=== PATIENT | female | born 1980 | race Caucasian/White ===

== ENCOUNTER → 2020-09-27 15:28 | Outpatient (CLI) | payer OTHER, SELFPAY ==
--- NOTE | ~2020-09-27 | US_ITS ---
EXAMINATION: US venous doppler LE RT DATE: 09/27/2020 15:59 INDICATION: Right lower limb pain, swelling and tightness. TECHNIQUE: Grayscale ultrasound images without and with compression and Doppler ultrasound images of the right lower extremity veins were obtained. COMPARISON: None. FINDINGS: Noncompressible occlusive appearing deep venous thrombosis involving the right popliteal, gastrocnemi us and paired peroneal veins of the right calf. The visualized portions of right common femoral vein, profunda (deep) femoral vein, femoral vein, posterior tibial veins, gastrocnemius vein and greater s aphenous vein outflow are patent. IMPRESSION: 1. Deep venous thrombosis extending from the right popliteal vein into the gastrocnemius and paired peroneal veins of the right calf. Reviewed, dictated and finalized at location A. TING HOUSEKEEPER IMPRESSION: 1. Deep venous thrombosis extending from the right popliteal vein into the gas trocnemius and paired peroneal veins of the right calf.
== END ==
PROVIDERS: PCP Emergency Medicine; Visit Provider Emergency Medicine
DX: M79.661 Pain in right lower leg (principal); I82.401 Acute embolism and thrombosis of unspecified deep veins of right lower extremity
CPT/HCPCS: 93971

== ENCOUNTER 2020-10-12 13:54 | Observation (INO) | payer OTHER, SELFPAY ==
[2020-10-12] VITALS (20 sets, daily range): BP systolic 110–138; BP diastolic 65–90; PULSE 70–100; RESP 14–31; TEMP 36.1–36.8; O2SAT 98–100; BMI 27.7
--- NOTE | ~2020-10-12 | US_ITS ---
EXAMINATION: US venous doppler LE RT DATE: 10/12/2020 15:54 INDICATION: Right lower limb pain. TECHNIQUE: Grayscale ultrasound images without and with compression and Doppler ultrasound images of the right lower extremity veins were obtained. COMPARISON: Ultrasound 09/27/2020 FINDINGS: The visualized portions of right common femoral vein, profunda (deep) femoral vein, femoral vein, per carpenter veins, posterior tibial veins, and greater saphenous vein outflow are patent. There is thrombus in right popliteal, gastrocnemius, and soleus veins. IMPRESSION: 1. Persistent deep vein thrombosis involving the right popliteal, gastrocnemius, and soleus veins. Reviewed, dictated and finalized at location A. MBLY MACHINE OFFBEARER IMPRESSION: 1. Persistent deep vein thrombosis involving the right popliteal, gastrocnemiu s, and soleus veins.
--- NOTE | ~2020-10-12 | CT_ITS ---
EXAMINATION: CTA chest PE protocol DATE: 10/12/2020 16:51 INDICATION: Palpitations. TECHNIQUE: Computed tomography angiography (CTA) of the chest was performed with 100 mL Omnipaque-350 intravenous contrast timed to evaluate the pulmonary arteries. Coronal maximum intensity projection 3D-reconstructions were created by the technologist. Automated exposure control and iterative reconst ruction technique were employed. The dose-length product was 342.11 mGy-cm. COMPARISON: CT abdomen and pelvis 03/19/2019 FINDINGS: The lungs demonstrate mild dependent atelectasis. No pleural effusion. The heart size is no rmal. No pericardial effusion. There are acute pulmonary emboli in the lower lobes. There is mild tho racic spondylosis. IMPRESSION: 1. Acute pulmonary emboli in the lower lobes. Reviewed, dictated and finalized at location A. BORER
--- NOTE | ~2020-10-12 | XR_ITS ---
EXAMINATION: XR chest 2V DATE: 10/12/2020 14:55 INDICATION: Shortness of breath, anterior chest pain and palpitations with racing heart. TECHNIQUE: PA and lateral views of the chest were obtained. COMPARISON: None FINDINGS: Calcified nodules in the left upper lung zone consistent with old granulomatous disease. No other air space opacities, pulmonary edema, pleural effusion or pneumothorax. The cardiomediastinal silhouette is normal. Mild thoracic spondylosis. IMPRESSION: 1. No acute cardiopulmonary disease. Reviewed, dictated and finalized at location B. INE RUG CLEANER
--- NOTE | 2020-10-12 13:57 | ECG_ITS ---
Measurements Intervals [place] Rate: 89 P: 63 TX: 131 QRS: 70 QRSD: 88 T: 46 QT: 343 QTc: 419 Interpretive Statements SINUS RHYTHM BORDERLINE ST ABNORMALITY- INFERIOR LEADS BASELINE WANDER- V4-V6 BORDERLINE ECG Electronically Signed On 10-12-2020 14:25:11 TRAINING AND DEVELOPMENT DIRECTOR by Rachid Ley D.O.
[2020-10-12 14:22] LABS: Basophils Percent Auto 0.7 % (0.2-1.2); Eosinophils Absolute Auto 0.3 K/mm3 (0-0.3); Eosinophils Percent Auto 4.5 % (0-4.4); Hematocrit 39.4 % (37.0-47.0); Hemoglobin 13.5 g/dL (12.0-15.0); Immature Granulocyte Absolute 0.01 K/mm3 (0.00-0.031); Immature Granulocyte Percent A 0.2 % (0-0.5); Lymphocytes Absolute Auto 1.63 K/mm3 (0.9-3.2); Mean Corpuscular HGB Conc 34.3 g/dl (32-36); Mean Corpuscular Hemoglobin 31.8 pg (26-34); Mean Corpuscular Volume 92.7 fl (80-100); Mean Platelet Volume 9.2 fl (7.4-10.4); Monocytes Absolute Auto 0.3 K/mm3 (0.1-0.6); Monocytes Percent Auto 5.5 % (2.6-8.5); Neutrophils Absolute Auto 3.6 K/mm3 (1.3-6.7); Neutrophils Percent Auto 61.1 % (45.5-73.1); Platelet Count Result 272 k/mm3 (150-375); Red Blood Count 4.25 M/mm3 (4.2-5.4); Red Cell Distribution Width 12.5 % (11.5-14.5); White Blood Count 5.8 K/mm3 (4.5-10.0)
[2020-10-12 14:37] LABS: Anion Gap 10 mmol/L (8-16); Blood Urea Nitrogen 10 mg/dL (7-17); Calcium 8.7 mg/dL (8.4-10.2); Carbon Dioxide 24 mmol/L (22-30); Chloride 102 mmol/L (98-107); Estimated CRCL calculation 96 ml/min; Estimated Glomerular Filt Rate > 60; Glucose 135 mg/dL (65-105); Potassium 3.6 mmol/L (3.4-5.0); Sodium 136 mmol/L (137-145)
[2020-10-12 14:38] LABS: INR 1.1; Prothrombin Time 14.9 Seconds (11.1-14.7)
[2020-10-12 14:39] LABS: Partial Thromboplastin Time 29.3 SECONDS (22.3-36.8)
[2020-10-12 14:46] LABS: Troponin I < 0.012 ng/mL (0.000-0.034)
[2020-10-12 15:04] LABS: Magnesium 1.7 mg/dL (1.6-2.3)
--- NOTE | 2020-10-12 15:09 | PC.NURSE ---
received report from Preethi AVALOS. patient here with palpitations. notes reviewed. on satellite project site monitor. no SL inserted yet. waiting for further orders from provider.
--- NOTE | 2020-10-12 16:28 | PC.NURSE ---
CT notified. SL inserted. BS preg pending.
--- NOTE | 2020-10-12 16:40 | PC.NURSE ---
test documented. patient to CT.
--- NOTE | 2020-10-12 16:56 | PC.NURSE ---
patient back from CT.
--- NOTE | 2020-10-12 17:10 | ED.ARRPALP ---
HPI - Arrhythmia/Palpitations General Chief Complaint: Arrhythmia/Palpitations Stated Complaint: INT CP XTD Time Seen by Provider: 10/12/20 14:46 Source: patient Mode of arrival: ambulatory Limitations: no limitations History of Present Illness HPI narrative: 40-year-old female She was diagnosed with a right-sided popliteal DVT about a week ago and is taking Eliquis and just recently tapered her dose down She reported having blood tests done to screen for hypercoagulability as an outpatient and that as far as she knows they were unremarkable She was doing computer work at home today and had a number of unusual symptoms and contacted her physician who wanted her to be checked in the ER Her renal concern was that she is experiencing more pain and a sensation like the clot might be moving up in her right thigh towards her groin, however she notes that overall her leg is feeling much better and that it was so sore initially that she can hardly walk and that is much improved Additionally she had several instances where she felt like her heart was racing and her Apple Watch documented rates of 115-120 And she had a couple of instances of fleeting upper chest pain which seem to be worse after she ate lunch MD complaint: palpitations Related Data Allergies Allergy/AdvReac Type Severity Reaction Status Date / Time No Known Allergies Allergy Verified 03/19/19 09:52 Review of Systems Review of Systems: All systems reviewed & are unremarkable except as noted in HPI and below Constitutional: Constitutional: Denies chills, Denies fatigue, Denies fever(s), Denies headache(s) and Denies weakness Eyes: Eyes: Reports no additional eye complaints and Denies change in vision ENT: Denies headache(s), Denies epistaxis, Denies nasal congestion and Denies sore throat Cardiovascular: Cardiovascular: Reports chest pain, Reports rapid heart rate, Denies leg edema, Denies palpitations and Denies dyspnea Respiratory: Respiratory: Denies cough, Denies dyspnea and Denies wheezing Gastrointestinal: Gastrointestinal: Denies abdominal pain, Denies diarrhea, Denies nausea and Denies vomiting Genitourinary: Genitourinary: Denies hematuria, Denies urinary frequency and Denies dysuria Musculoskeletal: Musculoskeletal: Reports myalgias, Denies deformity, Denies arthralgias, Denies joint swelling, Denies muscle weakness and Denies numbness Integumentary/Breasts: Skin/Breast: Denies rash and Denies wounds Neurologic: Denies headache(s), Denies focal weakness, Denies numbness and Denies weakness Psychiatric: Psychiatric: Reports no additional psychiatric complaints Endocrine: Endocrine: Denies fatigue and Denies palpitations Hematologic/Lymphatic: Hematologic/Lymphatic: Denies easy bleeding and Denies easy bruising Allergic/Immunologic: Allergic/Immunologic: Denies wheezing PMFSH Past Medical History Medical History (Updated 10/12/20 @ 17:19 by Amari Haley MD) Miscarriage (~2007) Pneumonia (~1987) Surgical History Surgical History H/O lateral meniscus repair of left knee (~2003) H/O medial meniscus repair of left knee (~2003) S/P ACL surgery (~1996) Family History Family History Father Hypertension Family history of arthritis Sibling Patient's brother is in good health Mother Family history of pancreatic disease Social History Social History Smoking status: Never smoker Second hand tobacco smoke exposure: Yes Alcohol intake: current Substance use: never Exam Const: General: no acute distress, well developed, alert and awake Nutritional Appearance: well nourished Orientation/consciousness: patient oriented x3 (alert) Limitations: no limitations HENMT: Head: normocephalic and atraumatic Ears: external ears normal General nose exam: No nasa
--- NOTE | 2020-10-12 17:13 | PC.NURSE ---
resting on stretcher. back on laboratory monitor. waiting for MD to review with patient. waiting for further orders vs dispositionn.
[2020-10-12 17:59] LABS: NT Pro B Type Natriuretic Pept 94 PG/ML (5-100)
[2020-10-12] MEDS: ENOXAPARIN 80 MG/0.8 ML SYRINGE SUB-Q (18:12)
--- NOTE | 2020-10-12 18:20 | PC.NURSE ---
patient and aware of treatment plan. waiting for bed assignment upstairs. food tray ordered. on youth nutritional monitor. denies needs.
--- NOTE | 2020-10-12 19:02 | PC.NURSE ---
SBAR completed and sent to [facility].
--- NOTE | 2020-10-12 20:00 | PM.IMHP ---
H&P: HPI History of Present Illness Date/Time: 10/12/20 20:00 Chief Complaint: Palpitations. Narrative: This is a very pleasant 40-year-old female recently diagnosed with right leg DVT on Eliquis who presented to the emergency department earlier today via private vehicle from home for evaluation of palpitations. Sometime around [place] she began experiencing discomfort in her right calf and she was found to have a DVT extending from the right popliteal vein into the gastrocnemius and paired peroneal veins of the right calf on 09/27/2020. 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 She was started on Eliquis that same day, taking 10 mg twice daily for 7 days, and she is now on 5 mg twice a day of which she states 100% compliance. Earlier this morning while sitting at her computer she suddenly began experiencing feelings of racing heart and palpitations, and noticed that her pulse was between 115 and 120 on her Fitbit watch (very unusual for her). The palpitations and racing heart were intermittent through the rest of the morning, and when she got up around lunchtime she felt short of breath and felt it would be best to come in for evaluation. Bilateral pulmonary emboli were noted on chest CTA and she is being admitted in this setting. At the time my evaluation she feels better and has no specific complaints at this time. She specifically denies lightheadedness, dizziness, chest pain, pleuritic pain, and current shortness of breath. She has no prior history of DVT but her dad has had recurrent DVTs as well as her uncle. No known history of malignancy. Weight has remained stable. She has never had a mammogram but does self exams and she has not noticed any lumps or bumps. She was on progesterone only in the summer of 2019 but has not been on hormone since that time. Review of Systems Review of Systems: Narrative: Twelve systems were reviewed with pertinent positives and negatives as per HPI. No fever, chills, or sweats. She has not been exposed to COVID or had COVID. As documented, all other systems were reviewed and are negative. [facility], [facility] Past Medical History Medical History (Updated 10/12/20 @ 23:09 by Yessenia Nagel PA-C) Miscarriage (~2007) Pneumonia (~1987) Right leg DVT (~09/2020) Right lower extremity DVT is extending from the popliteal to the gastrocnemius and bilateral peroneal veins. Surgical History Surgical History (Updated 10/12/20 @ 23:07 by Yessenia Nagel PA-C) History of lateral meniscus repair of left knee (~2003) History of medial meniscus repair of left knee (~2003) History of repair of anterior cruciate ligament of left knee (~1996) Family History Family History Father Family history of arthritis Hypertension Pulmonary embolism Sibling Patient's brother is in good health Mother Family history of pancreatic disease Other Thrombosis Social History Social History (Updated 10/12/20 @ 23:08 by Yessenia Nagel PA-C) Social History: The patient lives with her and their 2 sons, aged 8 in 10, in [place]. 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 She smoked for short period of time and collagen quit in 2000. She drinks perhaps 1 alcoholic beverage a night. No illicit substance use. Her Sonido is her surrogate decision maker and she wishes to be a full code. Spiritual care concerns: No Meds Home Medications and Allergies Home Medications Medication Instructions Recorded Confirmed Type apixaban [Eliquis] 5 mg PO Q12H 10/12/20 10/12/20 History Allergies Allergy/AdvReac Type Severity Reaction Status Date / Time No Known Allergies Allergy Verified 10/12/20 18:22 Vital Signs Vital Signs - 24 hr 10/12/20 13:56 10/12/20 14:43 10/12/20 14:44 Temper
--- NOTE | 2020-10-12 20:01 | ADMGEN ---
This patient, Bjorn Ramey, was admitted to [facility]. Patient/family oriented to hospital policies and general routines including ID bracelet, bed and alarms, visiting hours, pain management, procedures, bathroom and other care routines, personal items, smoking policy, room service/diet, and visiting hours. Information on how to activate the Rapid Response Team has been discussed. Patient/Family are encouraged to report perceived risks to care and to ask questions if they do not understand what they are told or what they should do.
[2020-10-13] VITALS: PULSE 69
--- NOTE | 2020-10-13 | ECHO_ITS ---
Patient Info Name: Bjorn Ramey Age: 40 years : 1980 Gender: Female Ht: 69 in Wt: 187 lbs BSA: 2.05 m2 HR: 70 bpm BP: 142 / 69 mmHg Heart Rhythm: Sinus Rhythm Technical Quality: Good Exam Date: 10/13/2020 1:55 PM Exam Location: [facility] Patient Status: Inpatient Admit Date: 10/12/2020 Staff Ordering Physician: Kirill Clark MD Scrap Drop Crane Operator: Everett Jesus RDCS Attending Provider: Kirill Clark MD Referring Physician: Amber LYNN; Exam Type: CA echo doppler color flow Study Info Indications I26.99 - Other pulmonary embolism without acute cor pulmonale Complete two-dimensional, color flow and Doppler transthoracic echocardiogram is performed. History/Risk Factors Pulmonary embolism; palpitations, tachycardia. Summary 1. Complete two-dimensional, color flow and Doppler transthoracic echocardiogram is performed. 2. Left ventricular chamber dimension is normal. 3. Left ventricular systolic function is normal, estimated at 60-65%. 4. The left ventricular diastolic function is grade I diastolic dysfunction. 5. E/e' 4 is not elevated. 6. No pulmonary hypertension, estimated pulmonary arterial systolic pressure is 23 mmHg. Left Ventricle E/e' 4 is not elevated. Left ventricular chamber dimension is normal. Left ventricular systolic function is normal, estimated at 60-65%. The left ventricular diastolic function is grade I diastolic dysfunction. Right Ventricle Right ventricular systolic function is normal and with normal TAPSE 2.3 cm. Right ventricular chamber dimension is normal. Left Atria Left atrial chamber dimension is normal. Right Atria Right atrial chamber dimension is normal. Aortic Valve The aortic valve is trileaflet. There is no aortic valve stenosis. There is no aortic valve regurgitation. Pulmonic Valve There is no pulmonic regurgitation. Mitral Valve There is no mitral valve stenosis. There is no mitral valve regurgitation. Tricuspid Valve There is no tricuspid valve regurgitation. No pulmonary hypertension, estimated pulmonary arterial systolic pressure is 23 mmHg. Pericardium/Pleural There is no pericardial effusion. Inferior Vena Cava Normal inferior vena cava with >50% collapse upon inspiration consistent with normal right atrial pressure, 5 mmHg. Aorta The aortic root size at the sinus of Valsalva is normal. Left Ventricular Outflow Tract Name Value Normal LVOT 2D LVOT Diameter 2.1 cm LVOT Doppler LVOT Peak Gradient 3 mmHg LVOT Mean Gradient 2 mmHg LVOT VTI 18 cm LVOT VTI/AV VTI Ratio 0.7 LVOT Stroke Volume 62 ml LVOT CO 4.7 l/min LVOT CI 2.3 l/min/m2 Mitral Valve Name Value Normal MV Doppler
[2020-10-13 00:26] LABS: Troponin I < 0.012 ng/mL (0.000-0.034)
[2020-10-13 04:00] VITALS: BP 114/82; PULSE 62; PULSE 66; RESP 16; TEMP 36.3; O2SAT 100
[2020-10-13] MEDS: ENOXAPARIN 100 MG/ML SYRINGE 85 MG SUB-Q ×2 (05:24→18:08)
[2020-10-13 06:15] LABS: Hematocrit 39.7 % (37.0-47.0); Hemoglobin 12.9 g/dL (12.0-15.0); Mean Corpuscular HGB Conc 32.5 g/dl (32-36); Mean Corpuscular Hemoglobin 31.3 pg (26-34); Mean Corpuscular Volume 96.4 fl (80-100); Mean Platelet Volume 9.4 fl (7.4-10.4); Platelet Count Result 234 k/mm3 (150-375); Red Blood Count 4.12 M/mm3 (4.2-5.4); Red Cell Distribution Width 12.6 % (11.5-14.5); White Blood Count 4.6 K/mm3 (4.5-10.0)
[2020-10-13 06:24] LABS: Partial Thromboplastin Time 30.1 SECONDS (22.3-36.8); Prothrombin Time 13.8 Seconds (11.1-14.7)
[2020-10-13 08:00] VITALS: BP 132/85; PULSE 85; PULSE 99; RESP 14; TEMP 36.3; O2SAT 100
[2020-10-13 12:00] VITALS: BP 142/89; PULSE 94; PULSE 96; RESP 14; O2SAT 100
[2020-10-13 16:00] VITALS: BP 127/78; PULSE 71; PULSE 83; RESP 15; O2SAT 16
--- NOTE | 2020-10-13 16:38 | PDONCCN ---
HPI - Date of Consult Date/Time: 10/13/20 16:38 Requesting Physician: Kirill Clark MD Primary Care Provider: Magdi Foss MD - Consult Narrative Reason for consult: Hypercoagulable state with new onset pulmonary embolism Narrative: Bjorn Ramey is a 40 year old female who has been in good health was diagnosed with right lower extremity DVT on September 27 when she developed unprovoked tightness and pain in the right calf. She was started treatment with Eliquis which she continues to take. She denies any provoking factor prior to that. She was on progesterone therapy for mass Des cessation that she completed 6 months prior to development of blood clot. There is a family history of blood clot in the father and uncle. Patient this time came back into the hospital with onset of palpitation and shortness of breath. Bilateral pulmonary embolism in the lower lobes were noted on the CTA chest. Doppler study showed persistent right lower extremity DVT involving popliteal, gastrocnemius and soleus vein. He is already feeling better after receiving Lovenox injection. She denies any provoking factor for blood clot this time as well other than not being very active as school are online. 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 Review of Systems - Review of Systems All systems reviewed & are unremarkable except as noted in HPI and bel - Neurologic Denies headache(s), Denies focal weakness, Denies numbness, Denies weakness PMFSH Medical History: Medical History (Last Updated 10/12/20 @ 23:09 by Yessenia Nagel PA-C) Miscarriage Onset Date: ~2007 Pneumonia Onset Date: ~1987 Right leg DVT Onset Date: ~09/2020 Right lower extremity DVT is extending from the popliteal to the gastrocnemius and bilateral peroneal veins. Surgical History: Surgical History (Last Updated 10/12/20 @ 23:07 by Yessenia Nagel PA-C) History of lateral meniscus repair of left knee Onset Date: ~2003 History of medial meniscus repair of left knee Onset Date: ~2003 History of repair of anterior cruciate ligament of left knee Onset Date: ~1996 Family History: Family History (Last Reviewed 10/12/20 @ 23:07 by Yessenia Nagel PA-C) Father Family history of arthritis Hypertension Pulmonary embolism Sibling Patient's brother is in good health Mother Family history of pancreatic disease Other Thrombosis - Social History Social History: Social History (Last Updated 10/12/20 @ 23:08 by Yessenia Nagel PA-C) Others: Spiritual care concerns: No Meds Home Medications Medication Instructions Recorded Confirmed Type apixaban [Eliquis] 5 mg PO Q12H 10/12/20 10/12/20 History Allergies Allergy/AdvReac Type Severity Reaction Status Date / Time No Known Allergies Allergy Verified 10/12/20 18:22 Results - Labs CBC & Chem 7: 10/13/20 05:21 10/12/20 14:12 Labs: Short CBC 10/13/20 Range/Units 05:21 WBC 4.6 (4.5-10.0) K/mm3 Hgb 12.9 (12.0-15.0) g/dL Hct 39.7 (37.0-47.0) % Plt Count 234 (150-375) k/mm3 Cardiac Enzymes 10/12/20 10/12/20 Range/Units 17:18 23:49 Troponin I Cancelled < 0.012 Assessment and Plan - Additional Plan Hypercoagulable state. Patient was initially diagnosed with right lower extremity DVT unprovoked when she came to the ER on September 27, 2020 with sudden onset of right lower extremity tightness and pain. Pain was bad enough that she was using crutches. She has no prior history of thromboembolic events. There is a family history of blood clot in the father and uncle. Prior to development of this blood clot she was on progesterone for mass show cessation that she completed 6 months prior to that. Patient was started on Eliquis with improvement in right lower extremity swelling and pain. Patient now came into the hospital with onset of shortness of breath and palpitation. CT chest showed bilateral lower lobe pulm
--- NOTE | 2020-10-13 16:40 | PM.IMPN ---
Progress Note: A&P Assessment and Plan (1) Pulmonary embolism: Code(s): I26.99 - Other pulmonary embolism without acute cor pulmonale Status: Acute Assessment and Plan: Bothersome since patient was already anticoagulated. Has been placed on Lovenox 1 milligram/kilogram Q 12 and will have to decide which anticoagulant use going forward. Echocardiogram revealed no pulmonary hypertension with normal ejection fraction Family history of DVT/PE and she will need thromboembolic evaluation further in the future. She does relate that she has had 1 miscarriage. Factor 5 Leiden was checked after her diagnosis of DVT and was negative (2) Right leg DVT: Onset Date: ~09/2020 Code(s): I82.401 - Acute embolism and thrombosis of unspecified deep veins of right lower extremity Status: Inactive Assessment and Plan: Lovenox b.i.d.. Subjective Date/time seen: 10/13/20 16:40 Interval history: Date of visit 10/13 40-year-old healthy white female with family history of thrombo embolic disease was diagnosed recently with DVT correct and yesterday evening became short of breath with palpitations. She presented to the emergency room and CTA revealed bilateral lower able emboli. As she had been taking her apixaban anticoagulant faithfully. Presently she is comfortable sitting in bed but a little short of breath with exertion. Exam Narrative: Exam Narrative: Blood pressure 140/86 pulse is 76 respirations 14 per minute saturating 100% on room air General: Well-developed female sitting up in bed in no distress. . HEENT: PERRL, Sclerae anicteric. Neck: Supple. Respiratory: Lungs are clear to auscultation bilaterally. Cardiovascular: Regular rate and rhythm with S1-S2 no murmurs. Gastrointestinal: Abdomen is soft, nontender, positive bowel sounds. Skin: Warm and dry. No rash or lesions on limited exam. Extremities: No clubbing, or edema. Radial and pedal pulses intact. Neurological: Alert. Cranial nerves 2-12 are grossly intact. No gross focal deficits to casual conversation. Psychiatric: Pleasant and cooperative with normal mood and affect. Judgment and insight intact. Objective Data Vital Signs Vital Signs: Vital Signs - 24 hr 10/12/20 17:54 10/12/20 18:00 10/12/20 18:55 Temperature Pulse Rate 92 96 97 Respiratory Rate 17 21 H 21 H Blood Pressure Pulse Oximetry 100 100 100 10/12/20 19:00 10/12/20 19:28 10/12/20 19:41 Temperature Pulse Rate 95 85 Respiratory Rate 14 Blood Pressure 135/78 Pulse Oximetry 98 10/12/20 20:00 10/12/20 23:38 10/13/20 00:00 Temperature 36.2 C L 36.6 C Pulse Rate 87 70 69 Respiratory Rate 18 14 Blood Pressure 133/79 113/69 Pulse Oximetry 99 99 10/13/20 04:00 10/13/20 08:00 10/13/20 12:00 Temperature 36.3 C L 36.3 C L Pulse Rate 62 99 96 Respiratory Rate 16 14 14 Blood Pressure 114/82 132/85 142/89 H Pulse Oximetry 100 100 100 10/13/20 16:00 Temperature Pulse Rate 71 Respiratory Rate Blood Pressure Pulse Oximetry Intake/Output Intake/Output: Intake & Output 10/10/20 10/11/20 10/12/20 10/13/20 23:59 23:59 23:59 23:59 Intake Total 800 Balance 800 Meds/Results Medications: Active Medications Generic Name Dose Route Start Last Admin Trade Name Freq PRN Reason Stop Dose Admin Acetaminophen 650 mg 10/12/20 18:05 Acetaminophen 325 Mg Tablet PO Q4H PRN Mild Pain (1-3) or Fever Enoxaparin Sodium 85 mg 10/13/20 06:00 10/13/20 05:24 Enoxaparin 100 Mg/Ml Syringe SUB-Q 85 mg Q12H DEIDRA Administration Ondansetron HCl 4 mg 10/12/20 18:05 Ondansetron Inj 4 Mg/2 Ml Vial IV PUSH Q4H PRN Nausea Radiology Results: ITS Impressions Chest X-Ray 10/12/20 14:58 IMPRESSION: 1. No acute cardiopulmonary disease. Venous Doppler Study 10/12/20 16:06 IMPRESSION: 1. Persistent deep vein thrombosis involving the right popliteal, gastrocnemius, and soleus vei
[2020-10-13 20:00] VITALS: BP 123/78; PULSE 86; PULSE 88; RESP 16; TEMP 36.2; O2SAT 99
[2020-10-14] VITALS: PULSE 63
[2020-10-14 00:50] VITALS: BP 99/71; PULSE 65; RESP 14; TEMP 36.5; O2SAT 100
[2020-10-14 04:00] VITALS: BP 107/56; PULSE 76; PULSE 80; RESP 16; TEMP 36.9; O2SAT 98
[2020-10-14] MEDS: ENOXAPARIN 100 MG/ML SYRINGE 85 MG SUB-Q (05:40)
[2020-10-14 08:00] VITALS: BP 122/84; PULSE 93; PULSE 94; RESP 18; TEMP 36.5; O2SAT 98
--- NOTE | 2020-10-14 09:15 | PC.NURSE ---
DISCUSSED W/ PT. SELF INJECTION OF LOVENOX. REVIEWED LOVENOX WEBSITE W/ PT. ON SELF ADMINISTRATION AND VIDEO WATCHED. EXPLAINED INJECTION INTO SUB Q TISSUE, WATCH FOR BRUISING OR BLEEDING. CARE NOTE FOR LOVENOX GIVEN. WILL CONTINUE TO MONITOR.
--- NOTE | 2020-10-14 11:20 | PC.NURSE ---
DR. STOREY HERE. DISCHARGE PLANNING IN PROGRESS. CARE COORDINATION WORKING W/ PT. TO CHECK AVAILABILITY AND COST OF LOVENOX INJECTIONS FOR HOME.
[2020-10-14 12:00] VITALS: BP 117/86; PULSE 87; PULSE 96; RESP 20; TEMP 36.8; O2SAT 100
--- NOTE | 2020-10-14 14:04 | PC.NURSE ---
REVIEWED DISCHARGE INSTRUCTIONS AND FOLLOW UP CARE W/ PT. REVIEWED SELF ADMINISTRATION OF LOVENOX INJECTIONS AT HOME EVERY 12 HOURS. QUESTIONS ANSWERED. VOICED UNDERSTANDING. COPIES OF PAPERWORK GIVEN.
--- NOTE | 2020-10-14 14:10 | PC.NURSE ---
DISCHARGED HOME, OUT VIA AMBULATION W/ ALL PERSONAL BELONGINGS AND DISCHARGE INSTRUCTIONS TO HUSBANDS WAITING CAR. VOICES NO C/O. NO DISTRESS NOTED. DENIES CP OR SOB. STEADY GAIT.
--- NOTE | 2020-10-14 18:21 | PM.DS ---
DS: Admitting Diagnosis Admitting Diagnosis Admitting Diagnosis: Pulmonary emboli DS: Discharge Diagnosis Discharge Diagnosis (1) Pulmonary embolism: Code(s): I26.99 - Other pulmonary embolism without acute cor pulmonale Status: Acute Assessment and Plan: placed on Lovenox 1 milligram/kilogram Q 12 . Echocardiogram revealed no pulmonary hypertension with normal ejection fraction Family history of DVT/PE and she will need thromboembolic evaluation further in the future. She does relate that she has had 1 miscarriage. Factor 5 Leiden was checked after her diagnosis of DVT and was negative Seen by Hematology and they recommended to continue outpatient Lovenox injections 1 milligram/kilogram q.12 hours for minimum of 2 weeks and transition back to Eliquis. It was felt that the progesterone she had been on in the fall and her recent more sedentary work had contributed primarily to the DVT and PE. As above she will still need further hyper coagulable workup in the future. (2) Right leg DVT: Onset Date: ~09/2020 Code(s): I82.401 - Acute embolism and thrombosis of unspecified deep veins of right lower extremity Status: Inactive Assessment and Plan: Repeat Doppler unchanged. She will continue on the Lovenox as stated above. DS: Summary Hospital Course Hospital Course: 40-year-old healthy female diagnosis with right DVT 09/27/2020 who had been faithfully taking her Eliquis medication. Evening of admission she had palpitations with shortness of breath and was found to have bilateral lower lobe emboli on CTA of the chest. Echocardiogram revealed no pulmonary hypertension or right heart strain. She is placed on Lovenox subcu Q 12 in within 24-36 hours symptoms had totally subsided. She was seen in consultation by Hematology who recommended continuation of 1 milligram/kilogram Lovenox q.12 hours as an outpatient for a minimum of 2 weeks to be reassessed at that time. She will eventually transition back to p.o. Eliquis. She will need hypercoagulable workup in the future also with her family history. She was feeling fine and may return to work 10/18/2020. Follow-up with Dr. Foss as previously scheduled Time Spent with Patient Time attestation: Total time spent providing and/or coordinating discharge services: 35 minutes Exam Narrative: Exam Narrative: Condition on discharge Blood pressure 118/84 pulse is 94 saturating 100% on room air afebrile Lungs clear CV regular rate rhythm Extremities without edema good distal pulses Neuro alert pleasant cooperative no focal deficits She was discharged home in stable condition and will return to work 10/18/2020 Discharge Plan Discharge Attending physician on discharge: Kirill Clrak Consulting providers: Samm Page Discharging Clinician: Kirill Clark Patient Disposition: Home, Self-Care Activity: as tolerated Diet: regular Discharge Instructions: Per Care Coordination Patient will need to apple picker Lovenox prescription at [facility] in [place] ([phone]) Patient aware of her cost and aware of picking up at [facility]. Patient Instructions: Antibiotic Form, Enoxaparin (By injection), Apixaban (By mouth), Pulmonary Embolism (DC), Deep Vein Thrombosis (DC) Stand Alone Forms: General Discharge Information, Work/School Release IP Follow-up/Referrals: Samm Page MD [Physician] - 2 Weeks Magdi Foss MD [Primary Care Provider] - Keep Reg. Scheduled Appt. Discharge Medications: New enoxaparin [Lovenox] 100 mg/mL Syringe 85 mg subcut Q12H Qty: 28 RF: 0 Discontinued Eliquis 5 mg tablet 5 mg PO Q12H RF: 0 Date of admission: 10/12/20 18:21 Primary Care Provider: Magdi Foss Admitting Provider: Kirill Clark Attending physician on admission: Kirill Clark Condition: Stable
== END 2020-10-14 14:10 | disposition home or self-care (01) ==
LOC: ANHED 17:53 → ANHCPC 18:58
PROVIDERS: Emergency Medicine; Physician Assistant; Admitting Provider Internal Medicine; Emergency Provider Emergency Medicine; PCP Emergency Medicine; Visit Provider Internal Medicine
DX: I26.99 Other pulmonary embolism without acute cor pulmonale (principal); I82.431 Acute embolism and thrombosis of right popliteal vein; R00.2 Palpitations; Z87.891 Personal history of nicotine dependence; R06.02 Shortness of breath
CPT/HCPCS: 36415; 71046; 71275; 80048; 81025; 83735; 83880; 84484; 85025; 85027; 85610; 85730; 93005; 93306; 93971; 96372; 99285; G0378; J1650; Q9967

== ENCOUNTER 2020-11-25 07:48 | Outpatient (CLI) | payer OTHER, SELFPAY ==
--- NOTE | ~2020-11-25 | CT_ITS ---
EXAMINATION: CTA chest PE protocol DATE: 11/25/2020 08:34 INDICATION: Shortness of breath and chest pain, history of pulmonary embolism TECHNIQUE: Computed tomography angiography (CTA) of the chest was performed with 100 mL Omnipaque-350 intravenous contrast timed to evaluate the pulmonary arteries. Coronal maximum intensity projection 3D-reconstructions were created by the technologist. The dose-length product (DLP) was 332.46 mGy-cm. Automated exposure control and iterative reconstruction technique were employed. COMPARISON: 10/12/2020 FINDINGS: The pulmonary arteries are well-opacified. There is a persistent embolus in the right lower lobe which is decreased in size since the comparison examination. The previously described left lowe r lobe pulmonary embolus is no longer identified. No new pulmonary emboli are seen. There is mild dep endent atelectasis. The lungs are free of focal airspace opacities. There is no pleural effusion or p neumothorax. No pathologically enlarged thoracic lymph nodes are identified. The heart size is normal . There is mild thoracic spondylosis. IMPRESSION: 1. Persistent but decreased emboli in the right lower lobe. Resolved left lower lobe pulmonary embolu s. Reviewed, dictated and finalized at location A. O TIME BUYER IMPRESSION: 1. Persistent but decreased emboli in the right lower lobe. Resolved left lower lobe pulmonary embolus.
== END 2020-11-25 07:49 | disposition home or self-care (01) ==
PROVIDERS: PCP Emergency Medicine; Visit Provider Internal Medicine Hematology & Oncology
DX: I26.99 Other pulmonary embolism without acute cor pulmonale (principal)
CPT/HCPCS: 71275; Q9967

== ENCOUNTER 2020-11-29 11:02 | Outpatient (CLI) | payer OTHER, SELFPAY ==
--- NOTE | ~2020-11-29 | US_ITS ---
EXAMINATION: US venous doppler LE RT DATE: 11/29/2020 11:30 INDICATION: Right calf pain. TECHNIQUE: Grayscale ultrasound images without and with compression and Doppler ultrasound images of the right lower extremity veins were obtained. COMPARISON: Ultrasound 10/12/2020 FINDINGS: The visualized portions of right common femoral vein, profunda (deep) femoral vein, femoral vein, per carpenter veins, posterior tibial veins, and greater saphenous vein outflow are patent. There is thrombus in the right popliteal vein. IMPRESSION: 1. Persistent deep vein thrombosis involving right popliteal vein. Reviewed, dictated and finalized at location A.
== END 2020-11-29 11:03 | disposition home or self-care (01) ==
PROVIDERS: PCP Emergency Medicine; Visit Provider Internal Medicine Hematology & Oncology
DX: I82.531 Chronic embolism and thrombosis of right popliteal vein (principal)
CPT/HCPCS: 93971

== ENCOUNTER 2021-02-16 12:06 | Outpatient (CLI) | payer OTHER, SELFPAY ==
--- NOTE | ~2021-02-16 | CT_ITS ---
EXAMINATION: CTA chest PE protocol DATE: 02/16/2021 12:38 INDICATION: Shortness of breath. Follow-up of prior pulmonary emboli TECHNIQUE: Computed tomography angiography (CTA) of the chest was performed with 100 mL Omnipaque-350 intravenous contrast timed to evaluate the pulmonary arteries. Coronal maximum intensity projection 3D-reconstructions were created by the technologist. Automated exposure control and iterative reconst ruction technique were employed. Exam dose: 280.81 mGy-cm total exam DLP. COMPARISON: 11/25/2020 CT pulmonary scan 10/12/2020 CT pulmonary scan FINDINGS: There is diagnostic contrast enhancement of the pulmonary arteries. There is no change of m inimal residual filling defect in the posteromedial right lower lobe pulmonary artery circulation sin ce 11/25/2020. No interval new pulmonary embolism is identified. No thoracic aortic aneurysm or dissection is evident. Normal heart size. No pericardial or pleural effusion. No hilar or mediastinal mass lesion or lymphadenopathy. No pulmonary infiltrate or consolidation or pulmonary mass lesion is evident. Included skeletal structures are unremarkable. IMPRESSION: Stable minimal residual posterior medial right lower lobe pulmonary embolism; no signifi cant change since 11/25/2020 Reviewed, dictated and finalized at Location A. Reviewed, dictated and finalized at location A. IMPRESSION: Stable minimal residual posterior medial right lower lobe pulmonar y embolism; no significant change since 11/25/2020
== END 2021-02-16 12:07 | disposition home or self-care (01) ==
PROVIDERS: PCP Emergency Medicine; Visit Provider Internal Medicine Hematology & Oncology
DX: R06.00 Dyspnea, unspecified (principal); I26.99 Other pulmonary embolism without acute cor pulmonale; I82.4Y1 Acute embolism and thrombosis of unspecified deep veins of right proximal lower extremity
CPT/HCPCS: 71275; Q9967

== ENCOUNTER 2021-02-28 13:36 | Outpatient (CLI) | payer OTHER, SELFPAY ==
--- NOTE | ~2021-02-28 | US_ITS ---
EXAMINATION: US venous doppler LE RT DATE: 02/28/2021 14:11 INDICATION: Acute right-sided deep venous thrombosis TECHNIQUE: Grayscale ultrasound images without and with compression and Doppler ultrasound images of the right lower extremity veins were obtained. COMPARISON: None. FINDINGS: The right popliteal vein is partially compressible with persistent no chronic thrombosis with well-de fined peripheral echogenic margins. The visualized portions of right common femoral vein, profunda (d eep) femoral vein, femoral vein, posterior tibial veins, peroneal veins, gastrocnemius vein and great er saphenous vein outflow are patent. IMPRESSION: 1. Persistent now chronic deep venous thrombosis in the right popliteal vein. No new deep venous thr ombosis identified in the right lower limb. Reviewed, dictated and finalized at location A. IMPRESSION: 1. Persistent now chronic deep venous thrombosis in the right popliteal vein. No new deep venous thrombosis identified in the right lower limb.
== END 2021-02-28 13:37 | disposition home or self-care (01) ==
PROVIDERS: PCP Emergency Medicine; Visit Provider Internal Medicine Hematology & Oncology
DX: I82.531 Chronic embolism and thrombosis of right popliteal vein (principal)
CPT/HCPCS: 93971

== ENCOUNTER → 2021-07-06 17:57 | Outpatient (CLI) | payer OTHER, SELFPAY ==
--- NOTE | ~2021-07-06 | MM_ITS ---
EXAMINATION: MM screening mike BI w genevieve HISTORY: Screening mammogram. Baseline examination. TECHNIQUE: Craniocaudal and mediolateral oblique 3-D tomosynthesis images were obtained and synthetic 2-D images were generated. Bilateral rotated lateral CC views. CAD analysis was submitted and interp reted. COMPARISON: No prior mammogram is available for comparison at this institution. BREAST PARENCHYMAL COMPOSITION: There are scattered areas of fibroglandular density. FINDINGS: There is asymmetry in the right mid to outer upper breast and upper left breast. 3.7 and 4 mm masses are noted in the posterior upper outer left breast. IMPRESSION: 1. Bilateral mammographic asymmetry of the left breast masses 2. Bilateral diagnostic mammography is recommended, with ultrasound as required BI-RADS Category 0: Incomplete: Needs additional imaging evaluation. Reviewed, dictated and finalized at location A.
== END ==
PROVIDERS: Visit Provider Obstetrics & Gynecology
DX: Z12.31 Encounter for screening mammogram for malignant neoplasm of breast (principal); R92.8 Other abnormal and inconclusive findings on diagnostic imaging of breast
CPT/HCPCS: 77063; 77067

== ENCOUNTER 2021-07-18 16:08 | Outpatient (CLI) | payer OTHER, SELFPAY ==
--- NOTE | ~2021-07-18 | US_ITS ---
EXAMINATION: US venous doppler LE RT DATE: 07/18/2021 17:06 INDICATION: Acute deep venous thrombosis TECHNIQUE: Mccann scale images without and with compression and Doppler images of the right lower extre mity veins were obtained. COMPARISON: 02/28/2021 FINDINGS: The right common femoral vein, profunda femoral vein, femoral vein, popliteal vein, peronea l trunk, posterior tibial veins, and greater saphenous vein are patent. IMPRESSION: 1. Patent right lower extremity veins. No evidence of deep venous thrombosis. Reviewed, dictated and finalized at location B.
== END 2021-07-18 16:09 | disposition home or self-care (01) ==
PROVIDERS: PCP Emergency Medicine; Visit Provider Internal Medicine Hematology & Oncology
DX: I82.4Y1 Acute embolism and thrombosis of unspecified deep veins of right proximal lower extremity (principal)
CPT/HCPCS: 93971

== ENCOUNTER → 2021-08-03 07:53 | Outpatient (CLI) | payer OTHER, SELFPAY ==
--- NOTE | ~2021-08-03 | MMUS_ITS ---
EXAMINATION: MM diagnostic mike BI w genevieve, US breast BI limited HISTORY: Bilateral breast asymmetries on screening mammogram TECHNIQUE: Additional 3-D tomosynthesis images of the breasts were performed and synthetic 2-D images were generated. CAD analysis was submitted and interpreted. High resolution limited bilateral breast ultrasound was performed. COMPARISON: 07/06/2021 BREAST PARENCHYMAL COMPOSITION: The breasts are heterogeneously dense, which may obscure small masses . FINDINGS: MAMMOGRAPHIC FINDINGS: Right breast: There is no evidence of suspicious mass, calcification, or architectural distortion to suggest malignancy. Left breast: There is a 4 mm oval, obscured, equal density mass in the posterior third of the upper-o uter quadrant breast at the 3:00 location 8 cm from the nipple which appears to have a lucent center. ULTRASOUND: Right breast: No suspicious cystic or solid mass is identified. Left breast: There is an intramammary lymph node at the 2:00 location 5 cm from the nipple correspond ing to mammographic finding in question. IMPRESSION: 1. No mammographic or sonographic evidence of malignancy. 2. Recommend routine screening mammography in one year. BI-RADS Category 2: Benign finding(s). Reviewed, dictated and finalized at location A. TING AND PUMPING SUPERVISOR IMPRESSION: 1. No mammographic or sonographic evidence of malignancy. 2. Recommend routine screening mammography in one year. BI-RADS Category 2: Benign finding(s).
== END ==
PROVIDERS: Visit Provider Obstetrics & Gynecology
DX: R92.8 Other abnormal and inconclusive findings on diagnostic imaging of breast (principal)
CPT/HCPCS: 76642; 77062; 77066; G0279

== ENCOUNTER → 2022-10-24 10:18 | Outpatient (CLI) | payer OTHER, SELFPAY ==
--- NOTE | ~2022-10-24 | MM_ITS ---
EXAMINATION: MM screening mike BI w genevieve HISTORY: Screening mammogram TECHNIQUE: Craniocaudal and mediolateral oblique 3-D tomosynthesis images were obtained and synthetic 2-D images were generated. Bilateral rotated lateral CC views. CAD analysis was submitted and interp reted. COMPARISON: 08/03/2021 bilateral diagnostic mammogram and Limited bilateral breast ultrasound 07/06/2021 bilateral screening mammogram BREAST PARENCHYMAL COMPOSITION: There are scattered areas of fibroglandular density. FINDINGS: There is no evidence of suspicious mass, calcification, or architectural distortion to sugg est malignancy in either breast. There has been no suspicious interval change. IMPRESSION: 1. No mammographic evidence of malignancy. 2. Recommend routine screening mammography in one year. BI-RADS Category 1: Negative Reviewed, dictated and finalized at location A. TTING REPRESENTATIVE
== END ==
PROVIDERS: PCP Nurse Practitioner Obstetrics & Gynecology; Visit Provider Nurse Practitioner Obstetrics & Gynecology
DX: Z12.31 Encounter for screening mammogram for malignant neoplasm of breast (principal)
CPT/HCPCS: 77063; 77067

== ENCOUNTER 2023-03-28 20:55 | Emergency (ER) | payer OTHER, SELFPAY ==
--- NOTE | ~2023-03-28 | CT_ITS ---
CT of the Abdomen and Pelvis: Indication: Abdominal pain Technique: 2.5 mm axial scans were obtained through the abdomen and pelvis following intravenous adm inistration of 100 cc of Omnipaque 350. Dose reduction technique was used on this scan by utilizing a utomated exposure control and iterative reconstruction technique. The dose-length product (DLP) was 6 31.40 mGy-cm. COMPARISON: 03/19/2019 Findings: Scans through the lung bases are unremarkable. The liver, spleen, pancreas, gallbladder, adrenals and kidneys are within normal limits. No evidence of aortic aneurysm. No lymphadenopathy. No bowel obstruction or bowel wall thickening. There is no evidence to suggest acute appendicitis. Images through the pelvis were performed. Urinary bladder unremarkable. No adnexal mass seen. No asci moustapha. Impression: No significant abnormalities seen. Reviewed, dictated and finalized at [facility]. Impression: No significant abnormalities seen.
[2023-03-28 21:06] VITALS: BP 130/80; PULSE 80; RESP 14; TEMP 36.4; O2SAT 100
[2023-03-28 21:22] LABS: Appearance Urine Clear (Clear); Bilirubin Urine Negative (Negative); Blood Urine Negative (Negative); Color Urine Yellow (Yellow); Glucose Urine UA Negative (Negative); Ketones Urine Negative (Negative); Leukocyte Esterase Ur Negative LEU/UL (Negative); Nitrate Urine Negative (Negative); Protein Urine Negative (Negative); Specific Grav Ur 1.008 (1.001-1.035); Urobilinogen Urine 0.2 mg/dL (<2.0)
[2023-03-28 21:25] LABS: Basophils Absolute Auto 0.1 K/mm3 (0.0-0.1); Basophils Percent Auto 1.2 % (0.2-1.2); Eosinophils Absolute Auto 0.2 K/mm3 (0-0.3); Eosinophils Percent Auto 3.3 % (0-4.4); Hematocrit 42.9 % (37.0-47.0); Hemoglobin 14.2 g/dL (12.0-15.0); Immature Granulocyte Absolute 0.01 K/mm3 (0.00-0.031); Immature Granulocyte Percent A 0.2 % (0-0.5); Lymphocytes Absolute Auto 2.21 K/mm3 (0.9-3.2); Lymphocytes Percent Auto 43.2 % (18.3-44.2); Mean Corpuscular HGB Conc 33.1 g/dl (32-36); Mean Corpuscular Hemoglobin 31.3 pg (26-34); Mean Corpuscular Volume 94.5 fl (80-100); Mean Platelet Volume 9.5 fl (7.4-10.4); Monocytes Absolute Auto 0.3 K/mm3 (0.1-0.6); Monocytes Percent Auto 6.4 % (2.6-8.5); Neutrophils Absolute Auto 2.3 K/mm3 (1.3-6.7); Neutrophils Percent Auto 45.7 % (45.5-73.1); Platelet Count Result 263 k/mm3 (150-375); Red Blood Count 4.54 M/mm3 (4.2-5.4); Red Cell Distribution Width 13.2 % (11.5-14.5); White Blood Count 5.1 K/mm3 (4.5-10.0)
[2023-03-28 21:32] LABS: Alanine Aminotransferase 16 U/L (6-35); Albumin Level 4.8 g/dL (3.5-5.1); Alkaline Phosphatase 55 U/L (38-126); Anion Gap 7 mmol/L (8-16); Aspartate Amino Transferase 25 U/L (14-36); Bilirubin,Total 0.4 mg/dL (0.2-1.3); Blood Urea Nitrogen 12 mg/dL (7-17); Calcium 9.1 mg/dL (8.4-10.2); Carbon Dioxide 27 mmol/L (22-30); Chloride 103 mmol/L (98-107); Estimated CRCL calculation 63 ml/min; Estimated Glomerular Filt Rate 49; Glucose 94 mg/dL (65-110); Potassium 3.7 mmol/L (3.4-5.0); Sodium 137 mmol/L (137-145)
[2023-03-28 21:39] LABS: Add Urine Microscopic? NO
[2023-03-28 23:33] VITALS: BP 117/78; PULSE 89; RESP 12; O2SAT 98
--- NOTE | 2023-03-28 23:40 | ED.ABDPAIN ---
HPI - Abdominal Pain General Chief Complaint: Abdominal Pain <Page Matamoros PA-C - Last Filed: 03/29/23 01:26> Stated Complaint: right sided abd pain <Page Matamoros PA-C - Last Filed: 03/29/23 01:26> Time Seen by Provider: 03/28/23 23:11 <Page Matamoros PA-C - Last Filed: 03/29/23 01:26> History of Present Illness HPI narrative: 43-year-old female reports for evaluation of right upper quadrant abdominal pain, intermittent for the past week. Patient states when she first experienced the pain, she was doing a sit up at the gym and experienced a sharp stabbing sensation in her right upper quadrant that radiated straight through to her back. States the pain slowly subsided and was then a dull ache. Reports that eventually went away and she was not experiencing any pain until tonight after she had a BLT and Caesar salad for dinner. States the sharp pain came back in the right upper quadrant and is now a dull ache. Rates her pain currently at a 2 out of 10. She reports nausea associated with a sharp pain, no emesis. Last bowel movement was prior to arrival and soft per the patient. She denies dysuria, hematuria, fever, body aches or chills, chest pain or shortness of breath, diarrhea or blood or mucus in her stool. LMP many years ago as she has had a uterine ablation. <Page Matamoros PA-C - Last Filed: 03/29/23 01:26> Related Data Allergies/Adverse Reactions: Allergies Allergy/AdvReac Type Severity Reaction Status Date / Time No Known Allergies Allergy Verified 03/28/23 20:56 <Page Matamoros PA-C - Last Filed: 03/29/23 01:26> Review of Systems Review of Systems: CONSTITUTIONAL: Denies fever, chills EYES: Denies visual changes, redness, or discharge. ENT: Denies rhinorrhea, congestion, sore throat, or otalgia. CARDIOVASCULAR: Denies chest pain, palpitations, or edema. RESPIRATORY: Denies cough or dyspnea. GASTROINTESTINAL: See HPI GENITOURINARY: Denies dysuria or hematuria. SKIN: Denies rash or itching. MUSCULOSKELETAL: Denies back pain, joint pain, or myalgia. NEUROLOGIC: Denies headache, numbness, dizziness, or weakness. PSYCHIATRIC: Denies anxiety or depression. <Page Matamoros PA-C - Last Filed: 03/29/23 01:26> [facility] Past Medical History Medical History: Medical History Miscarriage (~2007) Pneumonia (~1987) Right leg DVT (~09/2020) Right lower extremity DVT is extending from the popliteal to the gastrocnemius and bilateral peroneal veins. <Page Matamoros PA-C - Last Filed: 03/29/23 01:26> Surgical History Surgical History: Surgical History History of lateral meniscus repair of left knee (~2003) History of medial meniscus repair of left knee (~2003) History of repair of anterior cruciate ligament of left knee (~1996) <Page Matamoros PA-C - Last Filed: 03/29/23 01:26> Family History Family History: Family History Father Family history of arthritis Hypertension Pulmonary embolism Sibling Patient's brother is in good health Mother Family history of pancreatic disease Other Thrombosis <Page Matamoros PA-C - Last Filed: 03/29/23 01:26> Social History Social History: Social History Social History: The patient lives with her and their 2 sons, aged 8 in 10, in [place]. 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 She smoked for short period of time and collagen quit in 2000. She drinks perhaps 1 alcoholic beverage a night. No illicit substance use. Her Sonido is her surrogate decision maker and she wishes to be a full code. Smoking status: Never smoker Alcohol use details: 3-4 DRINKS/2-3 DAYS PER WEEK Spiritual care concerns: No <Page Matamoros PA-C - Roddy
[2023-03-29] MEDS: SODIUM CHLORIDE 0.9% IV 1,000 ML 999 ML IV CONT (00:03)
[2023-03-29 00:36] LABS: Lipase 159 U/L (23-300)
== END 2023-03-29 02:00 | disposition home or self-care (01) ==
PROVIDERS: Emergency Medicine; Emergency Provider Physician Assistant; PCP Emergency Medicine
DX: R10.11 Right upper quadrant pain (principal); Z87.01 Personal history of pneumonia (recurrent); Z86.718 Personal history of other venous thrombosis and embolism; Z87.891 Personal history of nicotine dependence
CPT/HCPCS: 36415; 74177; 80053; 81003; 81025; 83690; 85025; 96360; 99284; J7030; Q9967

== ENCOUNTER → 2023-04-03 09:18 | Outpatient (CLI) | payer OTHER, SELFPAY ==
--- NOTE | ~2023-04-03 | US_ITS ---
Limited Abdominal Sonogram: Real-time sonographic imaging of the right upper quadrant was performed. Clinical History: Right upper quadrant pain Findings: The liver appears normal with no evidence of mass lesion or bile duct dilatation. Main por mellissa vein demonstrates normal direction of flow. The gallbladder is well distended, and appears normal with no evidence of gallstone or wall thickening. The common bile duct measures 5 mm. The visualize d pancreas, aorta, and IVC are unremarkable. Impression: No significant abnormality seen. Reviewed, dictated and finalized at location M. Impression: No significant abnormality seen.
== END ==
PROVIDERS: PCP Surgery; Visit Provider Emergency Medicine
DX: R10.11 Right upper quadrant pain (principal)
CPT/HCPCS: 76705

== ENCOUNTER 2023-04-13 09:19 | Outpatient (CLI) | payer OTHER, SELFPAY ==
[2023-04-13 10:01] LABS: Amylase 61 U/L (30-110)
== END 2023-04-13 09:20 | disposition home or self-care (01) ==
LOC: ANHSURGERY 09:25
PROVIDERS: PCP Emergency Medicine; Visit Provider Surgery
DX: Z01.812 Encounter for preprocedural laboratory examination (principal); K81.1 Chronic cholecystitis
CPT/HCPCS: 36415; 82150; 86850; 86900; 86901

== ENCOUNTER 2023-04-16 00:40 | Day surgery (SDC) | payer OTHER, SELFPAY ==
--- NOTE | 2023-04-11 16:01 | PC.NURSE ---
Addendum entered by Monica Cheney RN 04/11/23 16:10: Instructed patient to bath/shower with hibiclens the morning of surgery. Original Note: Report to the Outpatient Waiting Room, entrance under the green pavilion located off [facility], at time 1100 on date 04/16/23. Planned Procedure Time: 1300. Time changes happen often and if your time is changed the preop area will call you the afternoon before. - You and your visitor will be asked to self-screen and do not enter if you have any COVID symptoms. - A mask is optional within the hospital at this time. Patients may have clear liquids (water, carbonated beverages, clear teas, apple juice) until 3 hours prior to surgery with a maximum of 20 ounces. 1000 - No food from midnight until time of surgery - Infants may have breast milk until 4 hours before surgery, infant formula 6 hours prior to surgery. - Children will be allowed to drink immediately following surgery. If applicable, please bring a bottle or sippy cup to assist with drinking. Juice, water, soda, and popsicles are readily available. For infants on formula, please bring formula the day of surgery. Pacifiers are allowed. Take the following medications with a SIP of water the morning of surgery: None DO NOT STOP ANY OF YOUR OTHER PRESCRIPTION MEDICATIONS PRIOR TO SURGERY ?EXCEPT THE FOLLOWING Medications to discontinue per physician None Date to take last dose None Please no make-up, nail mongolian, hairspray, perfume, deodorant, or body powder the day of surgery. No jewelry (including any body piercings) or valuables the day of surgery, leave them at home. Please take a shower or bath the night before, or the morning of, surgery with an antibacterial soap. Wear comfortable, loose fitting clothing. Children are encouraged to wear pajamas. - Jewelry must be removed prior to entering the operating room. Rings and piercings that are not removed may be cut off. - The hospital will not accept responsibility for valuables. - Please leave all valuables, including medications, at home the day of surgery. If you are going home after surgery, a licensed straight truck driver must drive you home. - NO public transportation without another adult if you receive anesthesia. - We recommend that an adult stay with you for 24 hours following discharge. - We also recommend that you do not drive, make important decision, drink alcoholic beverages, or take any drugs that were not prescribed by your health care provider for at least 24 hours after your discharge time. For Pediatric surgeries, we recommend two adults accompany the child home. Follow any additional instructions given to you from your surgeon. If you or anyone in your household have experienced Covid symptoms in the past week, please notify your surgeon or the nurse liaison at the phone number below for possible testing. Telephone instructions given to Bjorn Ramey and asked if any additional questions and then verbalized understanding. Patient advised to call surgeon office or pre surgery nurse liaison [phone] if any additional questions.
[2023-04-11 16:08] VITALS: BMI 28.8
[2023-04-16] VITALS (10 sets, daily range): BP systolic 112–132; BP diastolic 67–93; PULSE 55–90; RESP 12–16; TEMP 36.1–37; O2SAT 95–100
--- NOTE | 2023-04-16 09:05 | P.PNAN_ITS ---
Anes - Initial Pre Proc Eval Procedure: Operation Date: 04/16/23 13:00 Proposed Procedures p Laparoscopic Cholecystectomy - Sunni Doherty MD Date/Time: 04/16/23 09:05 Surgeon: Sunni Doherty MD Pre Op Diagnosis: chronic cholecystitis Patient Data Age: 43 Gender: F Height: 1.75 m Weight: 88.6 kg Allergies Allergy/AdvReac Type Severity Reaction Status Date / Time No Known Allergies Allergy Verified 04/16/23 11:07 Home Medications Medication Instructions Recorded Confirmed Type No Home Medications 04/07/23 04/16/23 History Patient hx anesthesia problems: none Family hx anesthesia problems: none Results Review: All pre-operative results and documents have been reviewed as part of the pre- operative evaluation. [facility] Past Medical History Medical History Miscarriage (~2007) Pneumonia (~1987) Right leg DVT (~09/2020) Right lower extremity DVT is extending from the popliteal to the gastrocnemius and bilateral peroneal veins. Surgical History Surgical History History of lateral meniscus repair of left knee (~2003) History of medial meniscus repair of left knee (~2003) History of repair of anterior cruciate ligament of left knee (~1996) Family History Family History Father Family history of arthritis Hypertension Pulmonary embolism Sibling Patient's brother is in good health Mother Family history of pancreatic disease Other Thrombosis Social History Social History Social History: The patient lives with her and their 2 sons, aged 8 in 10, in [place]. 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 She smoked for short period of time and collagen quit in 2000. She drinks perhaps 1 alcoholic beverage a night. No illicit substance use. Her Sonido is her surrogate decision maker and she wishes to be a full code. Smoking status: Never smoker Alcohol intake: current Drinks per week: 7 Alcohol use details: 3-4 DRINKS/2-3 DAYS PER WEEK Spiritual care concerns: No Anes - Eval Final PreProcedure Day of Procedure 04/16/23 09:05 Patient weight: overweight Heart: regular rate and rhythm Lungs: clear to auscultation Airway: Mallampati scale class II Neurological: alert and oriented Last oral intake: >/= 8 hours ASA classification: II Emergent: no Anesthetic plan: proceed Anesthesia type and monitoring: general ETT and standard monitoring Results Review: All pre-operative results and documents have been reviewed as part of the pre- operative evaluation. Informed Consent: The patient's anesthetic plan and its attendant risks and benefits were discussed with the patient/family/POA. Questions were solicited and answers provided to the satisfaction of the patient/family/POA.
[2023-04-16] MEDS: ACETAMINOPHEN 500 MG TABLET 1000 MG PO (11:29)
[2023-04-16] MEDS: KETOROLAC 15 MG/ML VIAL (*BKC) IV PUSH (11:44)
[2023-04-16] MEDS: LACTATED RINGERS 1,000 ML 30 ML IV CONT ×3 (11:44→16:31)
--- NOTE | 2023-04-16 13:51 | WPDHPUPDATE1 ---
History and Physical Update Update Date/Time: 04/16/23 13:51 History and Physical has been reviewed, including an updated exam of the patient. There are NO changes in the patient's condition. Risks, benefits, and alternatives have been discussed and questions answered. Patient agrees to proceed with procedure.
[2023-04-16] MEDS: fentaNYL CITRATE INJ (*CRX) 100 MCG/2 ML VIAL 25 MCG IV PUSH ×6 (15:20→17:00)
--- NOTE | 2023-04-16 15:20 | W.PM.PROC2 ---
Procedure Note - Detailed Date of Procedure 04/16/23 Pre-op Diagnosis chronic cholecystitis Post-op Diagnosis Same Procedure Performed Laparoscopic cholecystectomy Surgeon Sunni Doherty MD Anesthesia General Indications 43-year-old female presented to the office complaining of postprandial right upper quadrant abdominal pain associated with nausea and vomiting. Workup including imaging significant for chronic cholecystitis. Findings Cholecystitis Description of Procedure The patient was taken to the operating room placed in the supine position. After adequate induction of general anesthesia, the patient was prepped and draped in normal sterile fashion. A time-out was then performed to verify the patient's identity as well as the procedure being performed. I then made a 5 mm incision in the infraumbilical region. Through this, a Veress needle was placed into the peritoneal cavity and CO2 gas was then insufflated. After adequate pneumoperitoneum was achieved, the Veress needle was removed and a 5 mm optiview trocar was placed through this incision under direct visualization. I then placed the laparoscope through this trocar site and under direct visualization placed a further 12 mm subxiphoid port as well as 2 additional 5 mm ports in the right upper abdomen. The gallbladder was then identified and was noted to be moderately inflamed and distended. I was able to place a grasper at the dome of the gallbladder and this was retracted anterior and cephalad up over the liver. A 2nd retractor was then placed at the infundibulum and retracted laterally, this allowed visualization of the triangle of Calot. I then was able to visualize the cystic duct in its entirety from its proximal insertion into the gallbladder, to its distal junction with the common hepatic/common bile duct junction. At this point, I carefully skeletonized the proximal cystic duct with the [place] dissector. I then clipped and transected the proximal cystic duct. Next I visualized the cystic artery. Again the artery was skeletonized, clipped, and transected. I then used the Bovie cautery to take down the peritoneal attachments of the gallbladder off the liver bed. Once the gallbladder specimen was completely detached, an endo-pouch was placed through the 12 mm port site. I then placed the gallbladder specimen into the Endo pouch and removed the endo-pouch from the 12 mm port site. The specimen will now be sent to pathology for further review. I then copiously irrigated the right upper quadrant. Some mild oozing was noted in the liver bed and this was controlled with the bovie cautery. Hemostasis was noted in the liver bed, the clips were noted to be in good position on both the cystic duct stump and the cystic artery stump. No other pathology was noted in the right upper quadrant. I then moved the laparoscope to the subxiphoid port. No iatrogenic injury or other pathology was noted in the lower abdomen. I then closed the 12 mm trocar site under direct visualization using the Shivam cone and 0 Vicryl suture. At this point, the abdomen was desufflated and all ports removed. All port sites were then closed with 4.O Monocryl subcuticular sutures. Dermabond was placed on each incision. The patient tolerated the procedure well, was extubated in the operating room postoperative and will be transferred to the recovery room in stable condition Estimated Blood Loss 5 Drains No Packing No Pathology Yes Complications No immediate complications Condition Stable Disposition PACU [facility] Billing Surgery - Charge Forward: Surgery Billing
[2023-04-16] MEDS: ONDANSETRON INJ 4 MG/2 ML VIAL IV PUSH (15:38)
[2023-04-16] MEDS: diphenhydrAMINE HCl INJ 50 MG/ML VIAL 25 MG IV PUSH (16:32)
[2023-04-16] MEDS: SCOPOLAMINE 1.5 MG PATCH TRANSDERM (16:37)
[2023-04-16] MEDS: oxyCODONE HCL (*CRX) 5 MG TAB IR PO (17:12)
== END 2023-04-16 17:50 | disposition home or self-care (01) ==
PROVIDERS: PCP Emergency Medicine; Visit Provider Surgery
PROC: 0FT44ZZ Resection of Gallbladder, Percutaneous Endoscopic Approach (ICD-10-PCS; CPT 47562; principal; 2023-04-16 13:00)
DX: K81.1 Chronic cholecystitis (principal); R10.11 Right upper quadrant pain; Z86.718 Personal history of other venous thrombosis and embolism; Z86.711 Personal history of pulmonary embolism
CPT/HCPCS: 47562; 36415; 82150; 86850; 86900; 86901; 88304; A9270; J1100; J1200; J1885; J2250; J2405; J2704; J2710; J3010; J7120

== ENCOUNTER 2023-10-04 14:38 | Emergency (ER) | payer OTHER, SELFPAY ==
--- NOTE | ~2023-10-04 | CT_ITS ---
EXAMINATION: CT abdomen pelvis w con DATE: 10/04/2023 16:52 INDICATION: Right upper quadrant abdominal pain for one month. Nausea. Status post cholecystectomy, s imilar 2022. TECHNIQUE: Computed tomography (CT) of the abdomen and pelvis was performed with 100 CC Omnipaque 350 intravenous contrast. Automated exposure control and iterative reconstruction technique were employe d. Exam dose: 521.48 mGy-cm total exam DLP. COMPARISON: 04/03/2023 right upper quadrant ultrasound examination 03/29/2023 CT abdomen pelvis FINDINGS: Minimal stable discoid scarring, left lower lobe. The lung bases are clear of infiltrate or consolidation. Normal heart size. No pericardial or pleural effusion. Status post cholecystectomy. The liver, pancreas and bile ducts and pancreatic duct as well as the sp rené appear normal. Normal morphology of the adrenal glands. Stable small right renal probable cyst, unchanged since 07/30/2023. Even smaller probable cyst of the left kidney. No urinary tract calculus or hydroureteronephrosis. The urinary bladder, uterus and adn exal areas are unremarkable. No evidence of appendicitis. No bowel obstruction, bowel wall thickening, pneumatosis or intraperiton eal free air. Normal caliber of the abdominal aorta. No intraperitoneal or retroperitoneal or pelvic mass lesion or adenopathy or ascites. There is a metallic clip-like density along the right anteroinferior aspect of the body of the uterus . This was not present on 03/29/2023. Small fat-containing umbilical hernia. Included skeletal structures are unremarkable. IMPRESSION: Status post cholecystectomy Stable small renal cysts Reviewed, dictated and finalized at [facility]. Reviewed, dictated and finalized at [facility]. [facility] ARNP
[2023-10-04 14:43] VITALS: BP 131/76; PULSE 81; RESP 16; TEMP 36.4; O2SAT 100
[2023-10-04 15:59] LABS: Basophils Absolute Auto 0.1 K/mm3 (0.0-0.1); Basophils Percent Auto 1.3 % (0.2-1.2); Eosinophils Absolute Auto 0.1 K/mm3 (0-0.3); Eosinophils Percent Auto 2.2 % (0-4.4); Hematocrit 41.8 % (37.0-47.0); Hemoglobin 13.9 g/dL (12.0-15.0); Immature Granulocyte Absolute 0.01 K/mm3 (0.00-0.031); Immature Granulocyte Percent A 0.2 % (0-0.5); Lymphocytes Absolute Auto 2.05 K/mm3 (0.9-3.2); Lymphocytes Percent Auto 44.1 % (18.3-44.2); Mean Corpuscular HGB Conc 33.3 g/dl (32-36); Mean Corpuscular Hemoglobin 31.3 pg (26-34); Mean Corpuscular Volume 94.1 fl (80-100); Mean Platelet Volume 9.3 fl (7.4-10.4); Monocytes Absolute Auto 0.3 K/mm3 (0.1-0.6); Monocytes Percent Auto 6.5 % (2.6-8.5); Neutrophils Absolute Auto 2.1 K/mm3 (1.3-6.7); Neutrophils Percent Auto 45.7 % (45.5-73.1); Platelet Count Result 243 k/mm3 (150-375); Red Blood Count 4.44 M/mm3 (4.2-5.4); Red Cell Distribution Width 12.4 % (11.5-14.5); White Blood Count 4.7 K/mm3 (4.5-10.0)
[2023-10-04 16:01] LABS: Appearance Urine Clear (Clear); Bilirubin Urine Negative (Negative); Blood Urine Negative (Negative); Color Urine Yellow (Yellow); Glucose Urine UA Negative (Negative); Ketones Urine Negative (Negative); Leukocyte Esterase Ur Negative LEU/UL (Negative); Nitrate Urine Negative (Negative); Protein Urine Negative (Negative); Specific Grav Ur 1.004 (1.001-1.035); Urobilinogen Urine 0.2 mg/dL (<2.0)
[2023-10-04 16:02] LABS: Add Urine Microscopic? NO
[2023-10-04 16:10] LABS: Alanine Aminotransferase 16 U/L (6-35); Albumin Level 4.9 g/dL (3.5-5.1); Alkaline Phosphatase 63 U/L (38-126); Anion Gap 11 mmol/L (8-16); Aspartate Amino Transferase 26 U/L (14-36); Bilirubin,Total 0.5 mg/dL (0.2-1.3); Blood Urea Nitrogen 13 mg/dL (7-17); Calcium 9.1 mg/dL (8.4-10.2); Carbon Dioxide 25 mmol/L (22-30); Chloride 100 mmol/L (98-107); Estimated CRCL calculation 121 ml/min; Estimated Glomerular Filt Rate > 60; Glucose 80 mg/dL (65-110); Lipase 131 U/L (23-300); Potassium 3.4 mmol/L (3.4-5.0); Sodium 136 mmol/L (137-145)
--- NOTE | 2023-10-04 17:00 | ED.GENADULT ---
HPI - General Adult General Chief complaint: Abdominal Pain Stated complaint: RUQ pain, lap ronald 03/2023 Time Seen by Provider: 10/04/23 16:03 History of Present Illness HPI narrative: Bjorn Ramey is a 43 y/o female who presents with reports of having abdominal pain for about 1 month that was coming in waves and now the past few day has become constant and feeling severe. She reports of having some nausea /no vomiting/ No changes to bowel movements/ normal BM this moring denies fever/chills. Related Data Home Medications Medication Instructions Recorded Confirmed aspirin 81 mg tablet,delayed 81 mg PO DAILY 07/09/23 release Allergies Allergy/AdvReac Type Severity Reaction Status Date / Time No Known Allergies Allergy Verified 10/04/23 16:01 Review of Systems Review of Systems: CONSTITUTIONAL: Denies fever, chills, or sweats. EYES: Denies visual changes, redness, or discharge. ENT: Denies rhinorrhea, congestion, sore throat, or otalgia. CARDIOVASCULAR: Denies chest pain, palpitations, or edema. RESPIRATORY: Denies cough or dyspnea. GASTROINTESTINAL: reports abdominal pain right upper / mid pain off and on for 1 month constant and worse the past few weeks. + nausea, no vomiting, or diarrhea. GENITOURINARY: Denies dysuria or hematuria. SKIN: Denies rash or itching. MUSCULOSKELETAL: Denies back pain, joint pain, or myalgia. NEUROLOGIC: Denies headache, numbness, dizziness, or weakness. PSYCHIATRIC: Denies anxiety or depression. [facility] Past Medical History Medical History Miscarriage (~2007) Pneumonia (~1987) Right leg DVT (~09/2020) Right lower extremity DVT is extending from the popliteal to the gastrocnemius and bilateral peroneal veins. Surgical History Surgical History History of lateral meniscus repair of left knee (~2003) History of medial meniscus repair of left knee (~2003) History of repair of anterior cruciate ligament of left knee (~1996) Hx laparoscopic cholecystectomy 04/16/[address] Doherty. Family History Family History Father Family history of arthritis Hypertension Pulmonary embolism Sibling Patient's brother is in good health Mother Family history of pancreatic disease Other Thrombosis Social History Social History Social History: The patient lives with her and their 2 sons, aged 8 in 10, in [place]. 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 She smoked for short period of time and collagen quit in 2000. She drinks perhaps 1 alcoholic beverage a night. No illicit substance use. Her Sonido is her surrogate decision maker and she wishes to be a full code. Smoking status: Never smoker Alcohol intake: current Drinks per week: 7 Alcohol use details: 3-4 DRINKS/2-3 DAYS PER WEEK Lack of Transportation: No Lack of Food: Never True Current Housing: I Have Housing Concerned About Future Housing: No Difficulty Paying Gas/Electric Bills: No Difficulty Paying for Meds: No Currently Unemployed: No Education: Bachelor's Degree Difficulty w/ Childcare or Family Care: No Spiritual care concerns: No Exam Narrative: GENERAL: Well-appearing, well-nourished, and in no acute distress. HEAD: Normocephalic, atraumatic. EYES: PERRLA and EOMI. ENT: Nares clear, no rhinorrhea or epistaxis. Mucous membranes moist. Oropharynx without tonsillar hypertrophy exudate or other lesions. NECK: Supple. No adenopathy or masses. No carotid bruits or JVD CHEST: Clear to auscultation. No respiratory distress. No wheezes rales or rhonchi HEART: Regular rate and rhythm. No murmur heard. Normal peripheral pulses. ABDOMEN: Soft, nondistended, normal active bowel sounds, Pain noted to the right lower quadrant with palpation EXTREMITIES: Normal ran
[2023-10-04 20:36] VITALS: BP 129/72; PULSE 80; RESP 17; O2SAT 100
== END 2023-10-04 20:20 | disposition home or self-care (01) ==
PROVIDERS: Emergency Medicine; Emergency Provider Nurse Practitioner Family; PCP Emergency Medicine
DX: R10.31 Right lower quadrant pain (principal); Z87.01 Personal history of pneumonia (recurrent); Z86.718 Personal history of other venous thrombosis and embolism; Z87.891 Personal history of nicotine dependence; N28.1 Cyst of kidney, acquired
CPT/HCPCS: 36415; 74177; 80053; 81003; 81025; 83690; 85025; 99284; Q9967

== ENCOUNTER 2023-10-23 01:07 | Day surgery (SDC) | payer OTHER, SELFPAY ==
[2023-10-11 11:08] VITALS: BMI 28.3
--- NOTE | 2023-10-19 10:41 | SUR.PREOP ---
Patient called regarding upcoming procedure. Reviewed preop instructions, appointment times, and procedure prep.
[2023-10-23 11:40] VITALS: BP 119/60; PULSE 83; RESP 16; TEMP 36.3; O2SAT 100; BMI 27.8
[2023-10-23] MEDS: LACTATED RINGERS 1,000 ML 150 ML IV CONT (11:58)
--- NOTE | 2023-10-23 11:58 | WPDANESEPPF ---
Anes - Initial Pre Proc Eval Procedure: Operation Date: 10/23/23 14:00 Proposed Procedures p Esophagogastroduodenoscopy - Chi Koch MD Date/Time: 10/23/23 11:58 Surgeon: Chi Koch MD Pre Op Diagnosis: Right upper quadrant pain Patient Data Age: 43 Gender: F Height: 1.75 m Weight: 85.4 kg Last Vital Signs Temp 97.4 F L 10/23/23 11:40 Pulse 83 10/23/23 11:40 Resp 16 10/23/23 11:40 BP 119/60 10/23/23 11:40 Pulse Ox 100 10/23/23 11:40 O2 Del Method Room Air 10/23/23 11:40 Allergies Allergy/AdvReac Type Severity Reaction Status Date / Time No Known Allergies Allergy Verified 10/23/23 11:45 Home Medications Medication Instructions Recorded Confirmed Type aspirin 81 mg tablet,delayed 81 mg PO DAILY 07/09/23 10/23/23 History release alprazolam 0.5 mg tablet (Xanax) 0.5 mg PO DAILY PRN anxiety #30 09/27/23 10/23/23 Rx tabs hydrocodone 5 mg-acetaminophen 325 1 tablet PO Q8H PRN pain #9 tabs 10/04/23 10/23/23 Rx mg tablet pantoprazole 40 mg tablet,delayed 40 mg PO QAM #30 tabs 10/09/23 10/23/23 Rx release (Protonix) Patient hx anesthesia problems: none Family hx anesthesia problems: none Results Review: All pre-operative results and documents have been reviewed as part of the pre-operative evaluation. [facility] Past Medical History Medical History Miscarriage (~2007) Pneumonia (~1987) Right leg DVT (~09/2020) Right lower extremity DVT is extending from the popliteal to the gastrocnemius and bilateral peroneal veins. Surgical History Surgical History History of lateral meniscus repair of left knee (~2003) History of medial meniscus repair of left knee (~2003) History of repair of anterior cruciate ligament of left knee (~1996) Hx laparoscopic cholecystectomy 04/16/[address] Doherty. Family History Family History Father Family history of arthritis Hypertension Pulmonary embolism Sibling Patient's brother is in good health Mother Family history of pancreatic disease Other Thrombosis Social History Social History Social History: The patient lives with her and their 2 sons, aged 8 in 10, in [place]. 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 She smoked for short period of time and collagen quit in 2000. She drinks perhaps 1 alcoholic beverage a night. No illicit substance use. Her Sonido is her surrogate decision maker and she wishes to be a full code. Smoking status: Never smoker Alcohol intake: current Drinks per week: 6 Alcohol use details: 3-4 DRINKS/2-3 DAYS PER WEEK Substance use type: does not use Do You Feel Safe in your Home?: Yes Lack of Transportation: No Lack of Food: Never True Current Housing: I Have Housing Concerned About Future Housing: No Difficulty Paying Gas/Electric Bills: No Difficulty Paying for Meds: No Currently Unemployed: No Education: Master's Degree or Higher Difficulty w/ Childcare or Family Care: No Living arrangements: other Additional living arrangements comments: with sp Spiritual care concerns: No Anes - Eval Final PreProcedure Day of Procedure 10/23/23 11:58 Patient weight: normal Heart: regular rate and rhythm Lungs: clear to auscultation Airway: Mallampati scale class II Neurological: alert and oriented Last oral intake: >/= 8 hours ASA classification: II Emergent: no Anesthetic plan: proceed Anesthesia type and monitoring: general GIVS and standard monitoring Results Review: All pre-operative results and documents have been reviewed as part of the pre-operative evaluation. Informed Consent: The patient's anesthetic plan and its attendant risks and benefits were discussed with the pa
--- NOTE | 2023-10-23 12:03 | PM.HPGS ---
History of Present Illness History of Present Illness Consent: Risks, benefits, and alternatives have been discussed and questions answered. Patient agrees to proceed with procedure. Chief complaint: Right upper quadrant pain Narrative: Bjorn Ramey is a 43 year old female here for abdominal pain, started on omeprazole and some improvement but still not gone, had cholecystectomy but still having GI issues, never had egd Review of Systems Constitutional: Constitutional: Denies headache(s) and Denies weakness Eyes: Eyes: Denies blurry vision ENT: Reports Normal hearing present, Denies headache(s) and Denies neck pain Cardiovascular: Cardiovascular: Denies chest pain and Denies dyspnea Respiratory: Respiratory: Denies dyspnea Gastrointestinal: Gastrointestinal: Reports no additional gastrointestinal complaints Genitourinary: Genitourinary: Denies dysuria Musculoskeletal: Musculoskeletal: Denies neck pain Integumentary/Breasts: Skin/Breast: Denies dry skin Neurologic: Reports Normal hearing present, Denies headache(s) and Denies weakness Psychiatric: Psychiatric: Denies anxiety Endocrine: Endocrine: Denies change in body appearance Hematologic/Lymphatic: Hematologic/Lymphatic: Denies easy bleeding Allergic/Immunologic: Allergic/Immunologic: Denies urticaria PMFSH Past Medical History Medical History Miscarriage (~2007) Pneumonia (~1987) Right leg DVT (~09/2020) Right lower extremity DVT is extending from the popliteal to the gastrocnemius and bilateral peroneal veins. Surgical History Surgical History History of lateral meniscus repair of left knee (~2003) History of medial meniscus repair of left knee (~2003) History of repair of anterior cruciate ligament of left knee (~1996) Hx laparoscopic cholecystectomy 04/16/[address] Doherty. Family History Family History Father Family history of arthritis Hypertension Pulmonary embolism Sibling Patient's brother is in good health Mother Family history of pancreatic disease Other Thrombosis Social History Social History Social History: The patient lives with her and their 2 sons, aged 8 in 10, in [place]. 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 She smoked for short period of time and collagen quit in 2000. She drinks perhaps 1 alcoholic beverage a night. No illicit substance use. Her Sonido is her surrogate decision maker and she wishes to be a full code. Smoking status: Never smoker Alcohol intake: current Drinks per week: 6 Alcohol use details: 3-4 DRINKS/2-3 DAYS PER WEEK Substance use type: does not use Do You Feel Safe in your Home?: Yes Lack of Transportation: No Lack of Food: Never True Current Housing: I Have Housing Concerned About Future Housing: No Difficulty Paying Gas/Electric Bills: No Difficulty Paying for Meds: No Currently Unemployed: No Education: Master's Degree or Higher Difficulty w/ Childcare or Family Care: No Living arrangements: other Additional living arrangements comments: with sp Spiritual care concerns: No Meds Home Medications and Allergies Home Medications Medication Instructions Recorded Confirmed Type aspirin 81 mg tablet,delayed 81 mg PO DAILY 07/09/23 10/23/23 History release alprazolam 0.5 mg tablet (Xanax) 0.5 mg PO DAILY PRN anxiety #30 09/27/23 10/23/23 Rx tabs hydrocodone 5 mg-acetaminophen 325 1 tablet PO Q8H PRN pain #9 tabs 10/04/23 10/23/23 Rx mg tablet pantoprazole 40 mg tablet,delayed 40 mg PO QAM #30 tabs 10/09/23 10/23/23 Rx release (Protonix) Allergies Allergy/AdvReac Type Severity Reaction Status Date / Time No Known Allergies Allergy Verified 10/23/23 11:45 Vital Signs Vital Si
[2023-10-23 12:16] VITALS: BP 117/78; PULSE 90; RESP 18; O2SAT 96
[2023-10-23 12:26] VITALS: BP 127/75; PULSE 80; RESP 18; O2SAT 100
[2023-10-23 12:36] VITALS: BP 134/89; PULSE 76; RESP 18; O2SAT 100
== END 2023-10-23 12:48 | disposition home or self-care (01) ==
PROVIDERS: PCP Emergency Medicine; Referring Provider Surgery; Visit Provider Internal Medicine Gastroenterology
PROC: 0DJ08ZZ Inspection of Upper Intestinal Tract, Via Natural or Artificial Opening Endoscopic (ICD-10-PCS; CPT 43235; principal; 2023-10-23 14:00)
DX: K44.9 Diaphragmatic hernia without obstruction or gangrene (principal); Z79.82 Long term (current) use of aspirin; Z86.718 Personal history of other venous thrombosis and embolism; Z79.891 Long term (current) use of opiate analgesic; Z90.49 Acquired absence of other specified parts of digestive tract
CPT/HCPCS: 43239; 88305; J2704; J7120

== ENCOUNTER 2024-08-07 13:49 | Outpatient (CLI) | payer OTHER, SELFPAY ==
--- NOTE | ~2024-08-07 | MM_ITS ---
EXAMINATION: MM screening mike BI w genevieve HISTORY: Screening mammogram TECHNIQUE: Craniocaudal and mediolateral oblique 3-D tomosynthesis images were obtained and synthetic 2-D images were generated. CAD analysis was submitted and interpreted. COMPARISON: 10/24/2022, 07/06/2021 BREAST PARENCHYMAL COMPOSITION:Not Dense. There are scattered areas of fibroglandular density. FINDINGS: No suspicious mass, calcification, or architectural distortion are identified in either staci ast to suggest malignancy. There has been no suspicious interval change. IMPRESSION: No mammographic evidence of malignancy. Recommend routine screening mammography in one year. BI-RADS Category 1: Negative Reviewed, dictated and finalized at location . [employer] [employer]
== END 2024-08-07 13:50 | disposition home or self-care (01) ==
LOC: MICIMG 13:50
PROVIDERS: PCP Obstetrics & Gynecology Gynecology; Visit Provider Obstetrics & Gynecology Gynecology
DX: Z12.31 Encounter for screening mammogram for malignant neoplasm of breast (principal)
CPT/HCPCS: 77063; 77067